=== PATIENT | female | born 1960 | race Caucasian/White ===

== ENCOUNTER → 2020-08-18 16:18 | Outpatient (CLI) | payer OTHER, MEDICAID, SELFPAY | PROVIDERS: Visit Provider Physician Assistant | DX: L02.91 Cutaneous abscess, unspecified (principal) | CPT/HCPCS: 87070; 87075; 87077; 87185; 87205 ==

== ENCOUNTER → 2022-09-23 14:21 | Outpatient (CLI) | payer OTHER, MEDICAID, SELFPAY ==
[2022-09-23 15:27] LABS: Influenza A - CEPHEID Flu A NEGATIVE (NEGATIVE); Influenza B - CEPHEID Flu B NEGATIVE (NEGATIVE); Respiratory Syncytial Virus Negative (Negative)
[2022-09-23 15:29] LABS: COVID-19 CEPHEID 4-PLEX PCR Negative (Negative)
== END ==
PROVIDERS: Visit Provider Physician Assistant
DX: R06.02 Shortness of breath (principal)
CPT/HCPCS: 0241U

== ENCOUNTER → 2022-09-23 14:32 | Outpatient (CLI) | payer OTHER, MEDICAID, SELFPAY ==
--- NOTE | 2022-09-23 14:39 | DI.RAD.S_ITS ---
PROCEDURE: XR CHEST 2V INDICATIONS: cough TECHNIQUE: 2 views of the chest were acquired. COMPARISON: None. FINDINGS: Surgical changes and devices: None. Lungs and pleura: Diffuse interstitial prominence. Streaky bibasilar opacities. No focal consolidation. No pneumothorax or substantial pleural effusion. Mediastinum: Mediastinal contours are normal. Heart size is normal. Bones and chest wall: No suspicious bony abnormalities. Soft tissues appear unremarkable. IMPRESSION: Diffuse interstitial prominence and streaky bibasilar opacities. Findings are nonspecific and may represent an infectious/inflammatory process with viral etiology most likely. Streaky opacities favored to represent atelectasis. No focal consolidation seen. Dictated by: Jose Manuel Hammond M.D. on 09/23/2022 at 15:06 Approved by: Jose Manuel Hammond M.D. on 09/23/2022 at 15:08
== END ==
PROVIDERS: Referring Provider Physician Assistant; Visit Provider Physician Assistant
DX: R05.9 Cough, unspecified (principal); R06.02 Shortness of breath
CPT/HCPCS: 0241U; 71046

== ENCOUNTER → 2022-09-29 10:17 | Outpatient (CLI) | payer OTHER, MEDICAID, SELFPAY ==
[2022-09-29 10:56] LABS: Add Manual Diff / Slide Review NO; Basophils Absolute Auto 100 /uL (0-100); Basophils Percent Auto 0.9 % (0-2); Eosinophils Absolute Auto 200 /uL (0-450); Hematocrit 47.2 % (36-46); Hemoglobin 15.9 g/dL (12.0-16.0); Hemoglobin A1C% w Est Avg Glu 5.5 % (4.0-6.0); Lymphocytes Absolute Auto 2900 /uL (1100-4500); Lymphocytes Percent Auto 30.1 % (25-40); Mean Corpuscular HGB Conc 33.7 % (30-36); Mean Corpuscular Hemoglobin 30.5 PG (26-34); Mean Corpuscular Volume 90.6 fL (80-100); Monocytes Absolute Auto 500 /uL (0-900); Monocytes Percent Auto 5.3 % (3-14); Neutrophils Absolute Auto 5900 /uL (1500-7000); Neutrophils Percent Auto 61.7 % (50-75); Platelet Count 278 X10^3/uL (150-400); Red Blood Cell Count 5.22 X10^6/uL (4.0-5.2); Red Cell Distribution Width 12.9 % (11.6-14.8); White Blood Cell Count 9.6 X10^3/uL (4.5-11.0)
[2022-09-29 11:29] LABS: Alanine Aminotransferase 24 IU/L (<35); Albumin 4.1 g/dL (3.5-5.0); Albumin Globulin Ratio 1.2 (1.0-2.8); Alkaline Phosphatase 95 U/L (38-126); Aspartate Aminotransferase 29 IU/L (14-36); BUN Creatinine Ratio 21.7 (6-22); Bilirubin Total 0.3 mg/dL (0.2-1.3); Blood Urea Nitrogen 13 mg/dL (7-17); Calcium 8.8 mg/dL (8.4-10.2); Carbon Dioxide 26 mmol/L (22-32); Chloride 107 mmol/L (98-107); Cholesterol 211 mg/dL (140-199); Estimated Glomerular Filt Rate > 60 mL/min (>60); Globulin 3.4 g/dL (1.7-4.1); Glucose 105 mg/dL (80-110); HDL Cholesterol 33 mg/dL (40-60); HEMOLYSIS < 15 (0-50); LDL Cholesterol Calculated 132 mg/dL (<100); Potassium 3.9 mmol/L (3.4-5.1); Sodium 140 mmol/L (137-145); Total Protein 7.5 g/dL (6.3-8.2); Triglycerides 232 mg/dL (35-150)
== END ==
PROVIDERS: PCP Family Medicine; Referring Provider Family Medicine; Visit Provider Family Medicine
DX: I10 Essential (primary) hypertension (principal)
CPT/HCPCS: 36415; 80053; 80061; 83036; 85025

== ENCOUNTER → 2022-10-06 12:36 | Outpatient (CLI) | payer OTHER, MEDICAID, SELFPAY ==
--- NOTE | 2022-10-06 12:36 | DI.ECHO.S_ITS ---
[place] [facility]---------+ [facility] +---------+ : : [address] : : : : [id number] : : : : Phone: [phone] Echocardiogram Report + + :Name: BERNARDA COSTELLO Study Date: 10/06/2022 Height: 66 in : :[facility] ReadingLocation: Weight: 220 lb : : Gender: Female BSA: 2.1 m2 : :: 1960 Age: 61 yrs BP: 171/120 mmHg: :Reason For Study: Congestive Heart Failure : :Ordering Physician: JANNY, : :JOANNA Performed By: Michael Acosta : :Referring: JOANNA SOLIMAN : + + Interpretation Summary The left ventricle is normal in size. Left ventricular systolic function appears normal without focal wall motion abnormalities. The ejection fraction is estimated to be 55-60%. Diastolic parameters suggest a relaxation abnormality of the left ventricle, consistent with probable normal filling pressures. The right ventricle is normal in size and function. Pulmonary artery pressures cannot be estimated because of the lack of a measurable TR jet velocity. Both atria are normal in size. There is no significant valvular heart disease. The aortic root is normal size. Procedure: A two-dimensional transthoracic echocardiogram with color flow and Doppler was performed. The study quality was technically adequate. There is no prior echocardiogram noted for this patient. The patient was in normal sinus rhythm during the exam. Left Ventricle: The left ventricle is normal in size. There is mild concentric left ventricular hypertrophy. Left ventricular systolic function appears normal without focal wall motion abnormalities. The ejection fraction is estimated to be 55-60%. Diastolic parameters suggest a relaxation abnormality of the left ventricle, consistent with probable normal filling pressures. Right Ventricle: The right ventricle is normal in size and function. Atria: Both atria are normal in size. The interatrial septum grossly appears intact with no obvious evidence for an atrial septal defect. Mitral Valve: The mitral valve is normal in structure and function. There is no mitral regurgitation noted. Aortic Valve: The aortic valve is normal in structure and function. No aortic regurgitation is present. Tricuspid Valve: The tricuspid valve is normal in structure and function. No tricuspid regurgitation. Pulmonary artery pressures cannot be estimated because of the lack of a measurable TR jet velocity. Pulmonic Valve: The pulmonic valve is normal in structure and function. There is no pulmonic valvular regurgitation. There is no significant valvular heart disease. Great Vessels: The aortic root is normal size. The ascending aorta could not be visualized. The IVC is of normal diameter and collapses greater than 50% with a sniff. This suggests a low right atrial pressure of 3 mm Hg. Pericardium/ Pleura There is no pericardial effusion. There is no pleural effusion. MMode/2D Measurements & Calculations LVIDd: 4.6 cm LVOT diam: 2.1 cm LVIDs: 3.3 cm Ao root diam: 3.3 cm FS: 27.1 % IVSd: 1.3 cm LVPWd: 1.2 cm LV mancilla. diameter/BSA (cm/m^2): 2.2 LV sys. diameter/BSA (cm/m^2): 1.6 LA dimension: 5.2 cm RA long axis: 4.2 cm LA A2 area: 21.0 cm2 RA area: 11.7 cm2 LA A4 area: 15.8 cm2 RA vol: 27.4 ml LA length (vol): 4.4 cm RA : 13.1 ml/m2 LA vol: 63.4 ml LA vol index: 30.4 ml/m2 RVD1 (basal): 2.7 cm TAPSE: 2.8 cm Doppler Measurements & Calculations Ao V2 max: 146.3 cm/sec LVOT Max Iván: 84.5 cm/sec Ao V2 mean: 98.1 cm/sec LV V1 max P.9 mmHg Ao max P.6 mmHg LV V1 VTI: 15.9 cm Ao mean P.4 mmHg MARIANA(I,D): 2.3 cm2 Ao V2 VTI: 23.5 cm MARIANA(V,D): 1.9 cm2 sev ratio: 0.68 MARIANA indexed to BSA (cm^2/m^2): 1.1 MV E max iván: 63.4 cm/sec SV(LVOT): 53.5 ml MV A max iván: 92.0 cm/sec MV E/A: 0.69 Med Peak E' Iván: 4.6 cm/sec E/E' med: 13.8 Lat Peak E' Iván: 6.6 cm/sec E/E' lat: 9.6 E/e' average: 11.7 MV dec time: 0.28 sec Reading Physician:03:54 PM
== END ==
PROVIDERS: PCP Family Medicine; Referring Provider Family Medicine; Visit Provider Family Medicine
DX: I11.0 Hypertensive heart disease with heart failure (principal); I50.9 Heart failure, unspecified
CPT/HCPCS: 93306

== ENCOUNTER 2023-04-20 10:45 | Observation (INO) | payer OTHER, MEDICAID, SELFPAY ==
[2023-04-20] VITALS (24 sets, daily range): BP systolic 109–204; BP diastolic 66–126; PULSE 77–114; RESP 11–36; TEMP 36.6–37.3; O2SAT 93–100; BMI 31.4
--- NOTE | 2023-04-20 10:47 | ED.GENADULT ---
HPI - General Adult General Chief complaint: Altered Mental Status Stated complaint: sent by /ricky Time Seen by Provider: 04/20/23 10:47 History of Present Illness HPI narrative: 62-year-old female with history of hypertension and hyperlipidemia presents with family in the chief complaint of confusion over the course of the day. She had been seen and evaluated a few days ago and found to have low sodium at an outside facility and had her medications changed. She had been taking hydrochlorothiazide and it was thought that this was the culprit. She was switched to amlodipine but has not had it filled. She denies any trauma or injury. She is had no fever or chills. She denies other medication or dietary change. She was in her normal state of health yesterday and then family checked in on her today and she is confused. She denies specific complaints such as blurred vision, trouble with speech, she has no neck pain, no extremity numbness or tingling. Related Data Previous Rx's Medication Instructions Recorded hydroxyzine HCl 25 mg tablet 12.5 - 50 mg PO QID PRN 01/10/23 anxiety/panic #90 tabs pramipexole 0.125 mg tablet 0.125 mg PO BEDTIME RLS #30 tabs 03/13/23 (Mirapex) trazodone 50 mg tablet 50 mg PO BEDTIME PRN insomnia #30 03/21/23 tabs nicotine (polacrilex) 4 mg buccal 4 mg buccal Q6H PRN nicotine 04/04/23 lozenge cravings #108 ea citalopram 20 mg tablet (Celexa) 20 mg PO DAILY #30 tabs 04/18/23 Allergies Allergy/AdvReac Type Severity Reaction Status Date / Time Sulfa (Sulfonamide Allergy Mild Itching, Verified 04/20/23 11:12 Antibiotics) nausea and just felt horrible Review of Systems Review of Systems Narrative: GENERAL: Denies chills, fatigue, malaise, fever, sweats. HEENT: Denies sinus pain, ear pain, sore throat, difficulty swallowing, dizziness. RESPIRATORY: Denies dyspnea, cough, wheezing, hemoptysis, sputum. CARDIOVASCULAR: Denies chest pain, palpitations, orthopnea, edema, GASTROINTESTINAL: Denies nausea, vomiting, abdominal pain, diarrhea, constipation, melena. : Denies dysuria, frequency, incontinence, hematuria, urinary retention. MUSCULOSKELETAL: denies weakness, joint pain, or bony pain SKIN: Denies rash, skin lesions, or other NEUROLOGIC: See HPI PSYCHIATRIC: No concerning psychosocial issues. 12 point review of systems is negative except for those stated above Patient History Medical History Ankle pain (2017) Anxiety (1971) CHF (congestive heart failure) (2015) Chicken pox (1975) Chronic headaches (1979) COPD (chronic obstructive pulmonary disease) Depression (2015) Foot pain (2016) JUN (generalized anxiety disorder) Hayfever History of substance abuse Insomnia Migraine Migraines (1979) Mumps (~1965) Pneumonia (10/2016) RLS (restless legs syndrome) (1973) Ruptured tympanic membrane (~1963) Substance abuse (1987) Tobacco dependence Surgical History Anesthesia History of section (1996) History of discectomy (1990) History of left hip replacement (05/2013) History of right hip replacement (01/2014) History of tonsillectomy (1962) Family History Father Pancreatic cancer Cancer Mother Parkinson's disease RLS (restless legs syndrome) Macular degeneration Ovarian cancer Cancer Hypertension Mental health problem Brother Congestive heart failure Cancer Heart disease Sister Heart disease Sister Mental health problem Anxiety Grandmother Mental health problem Suicide Bipolar disorder Social History household members: family Smoking Status: Former smoker Tobacco: How many years used: 41 quit status: not considering quitting (not today.) second hand exposure: No alcohol intake: former substance use type: former substance user Smoking Status: Current every day smoker (1 pack a day. Gave patient a smoking cessation handout.) Exam Narrative Exam Narrative: GENERAL: [62] year old patient appears stated age. Well-developed patient, in mild distress. GCS 14, mildly confused HEAD: Atraumatic. Normocephalic. EYES: Pupils equal round and reactive. Extraocular motions intact. No scleral icterus. No injection or drainage. ENT: Nose without bleeding, purulent drainage. Throat without erythema, tonsillar hypertrophy or exudate. Airway patent. NECK: Trachea midline. Non tender CARDIOVASCULAR: Regular rate and rhythm without murmurs, gallops, or rubs. RESPIRATORY: Clear to auscultation. Breath sounds equal bilaterally. No wheezes, rales, or rhonchi. GASTROINTESTINAL: Abdomen soft, non-tender, nondistended. EXTREMITIES: No edema or joint tenderness. BACK: Nontender without deformity or crepitance. No flank tenderness. NEURO: AOx3. SKIN: No rash or erythema of visible areas NIH Stroke Scale 1a. LOC: Patient is alert and keenly responsive (0) 1b. LOC Questions: Patient answers both LOC questions accurately (0) 1c. LOC Commands: Patient performs both tasks correctly (0) 2. Best Gaze: Normal (0) 3. Visual: No visual loss (0) 4. Facial palsy: Normal symmetrical movements (0) 5. Motor arm: No drift (0) 6. Motor leg: No drift (0) 7. Limb ataxia: Absent (0) 8. Sensory: Normal (0) 9. Best language: No aphasia; normal (0) 10. Dysarthria: Normal (0) 11. Extinction and inattention: No abnormality (0) NIHSS: 0 Initial Vital Signs Initial Vital Signs: Vital Signs Temperature 98 F 04/20/23 10:50 Pulse Rate 94 H 04/20/23 10:50 Respiratory Rate 18 04/20/23 10:50 Blood Pressure 204/126 H 04/20/23 10:50 Pulse Oximetry 99 04/20/23 10:50 Oxygen Delivery Method Room Air 04/20/23 10:50 Course Orders Ordered: Discontinued Medications Acetaminophen (Acetaminophen 325 Mg Tablet) 650 mg PO Q6H PRN PRN Reason: Fever/Mild Pain (1-3) Amlodipine Besylate (Amlodipine 5 Mg Tablet) 5 mg PO DAILY ASTRID Citalopram Hydrobromide (Citalopram 10 Mg Tablet) 20 mg PO DAILY ASTRID Diazepam (Diazepam 10 Mg/2 Ml Syringe) 5 mg IV NOW ONE Stop: 04/20/23 14:05 Last Admin: 04/20/23 14:12 Dose: 5 mg Documented By: JERROD Diazepam (Diazepam 10 Mg/2 Ml Syringe) 5 mg IV NOW ONE Stop: 04/20/23 14:57 Last Admin: 04/20/23 15:00 Dose: 5 mg Documented By: MARK ANTHONY Sodium Chloride (Normal Saline 0.9%) 1,000 mls @ 1,000 mls/hr IV BOLUS ONE Stop: 04/20/23 11:54 Last Infusion: 04/20/23 13:02 Dose: 0 mls/hr Documented By: Admin: 04/20/23 11:35 Dose: 1,000 mls/hr Documented By: JERROD Thiamine HCl 200 mg/ Sodium (Chloride) 102 mls @ 408 mls/hr IV NOW ONE Stop: 04/20/23 10:56 Last Infusion: 04/20/23 11:57 Dose: 0 mls/hr Documented By: MARK ANTHONY Admin: 04/20/23 11:35 Dose: 408 mls/hr Documented By: JERROD Labetalol HCl (Labetalol 20 Mg/4 Ml Syringe) 20 mg IV NOW ONE; Protocol Stop: 04/20/23 11:21 Last Admin: 04/20/23 11:58 Dose: 20 mg Documented By: JERROD Lidocaine HCl (Lidocaine 2% Inj Sdv 5ml) 5 ml INJ INTRA-OP ONE Stop: 04/20/23 16:59 Last Admin: 04/20/23 16:59 Dose: 5 ml Documented By: JERROD Lorazepam (Lorazepam 2 Mg/Ml Inj) 1 mg IV NOW ONE Stop: 04/20/23 12:57 Last Admin: 04/20/23 13:04 Dose: 1 mg Documented By: JERROD Lorazepam (Lorazepam 2 Mg/Ml Inj) 1 mg IV NOW ONE Stop: 04/20/23 15:39 Last Admin: 04/20/23 16:22 Dose: 1 mg Documented By: JERROD Lorazepam (Lorazepam 2 Mg/Ml Inj) 1 mg IV NOW ONE Stop: 04/20/23 16:01 Last Admin: 04/20/23 16:25 Dose: 1 mg Documented By: JERROD Magnesium Hydroxide (Magnesium Hydroxide 30 Ml Udc) 30 ml PO DAILY PRN PRN Reason: Constipation Nicotine (Nicotine 21 Mg Patch) 21 mg TOP DAILY ASTRID Pramipexole Dihydrochloride (Pramipexole 0.25 Mg Tablet) 0.125 mg PO BEDTIME ASTRID Sodium Chloride (Sodium Chloride 0.9% Flush) 10 ml IV PRN PRN PRN Reason: Flush Sodium Chloride (Sodium Chloride 0.9% Flush) 10 ml IV BID ASTRID Trazodone HCl (Trazodone 50 Mg Tablet) 50 mg PO BEDTIME PRN PRN Reason: insomnia Consultations Consultation #1: Discussed with Dr. Wiley, hospitalist, happy to accept patient, will see patient at bedside Vital Signs Vital signs: Vital Signs - 8 hr 04/20/23 10:50 04/20/23 10:57 04/20/23 10:58 Temperature 98 F Pulse Rate 94 H 99 H 99 H Respiratory Rate 18 22 15 Blood Pressure 204/126 H Pulse Oximetry 99 95 Oxygen Delivery Method Room Air 04/20/23 10:58 04/20/23 11:00 04/20/23 11:30 Temperature Pulse Rate 99 H Respiratory Rate 15 Blood Pressure 204/126 H 175/97 H Pulse Oximetry 100 Oxygen Delivery Method 04/20/23 11:30 04/20/23 11:58 04/20/23 11:37 Temperature Pulse Rate 96 H 92 H 92 H Respiratory Rate 23 23 Blood Pressure 171/109 H Pulse Oximetry 99 100 Oxygen Delivery Method 04/20/23 11:37 04/20/23 11:45 04/20/23 11:45 Temperature Pulse Rate 93 H Respiratory Rate 14 Blood Pressure 153/98 H 171/109 H Pulse Oximetry 99 Oxygen Delivery Method 04/20/23 12:00 04/20/23 12:04 04/20/23 12:04 Temperature Pulse Rate 87 80 Respiratory Rate 25 H 20 Blood Pressure 166/96 H Pulse Oximetry 100 98 Oxygen Delivery Method Medical Decision Making Lab Data 04/20/23 11:05 04/20/23 11:05 Labs: Lab Results 04/20/23 04/20/23 04/20/23 Range/Units 11:05 11:05 11:44 WBC 8.2 (4.5-11.0) X10^3/uL RBC 4.62 (4.0-5.2) X10^6/uL Hgb 13.6 (12.0-16.0) g/dL Hct 39.8 (36-46) % MCV 86.2 (80-100) fL MCH 29.4 (26-34) PG MCHC 34.1 (30-36) % RDW 13.3 (11.6-14.8) % Plt Count 339 (150-400) X10^3/uL Neut % (Auto) 66.0 (50-75) % Lymph % (Auto) 24.2 L (25-40) % Dale % (Auto) 7.3 (3-14) % Eos % (Auto) 1.3 L (2-4) % Baso % (Auto) 1.2 (0-2) % Neut # (Auto) 5400 (2822-4269) /uL Lymph # (Auto) 2000 (9468-2063) /uL Dale # (Auto) 600 (0-900) /uL Eos # (Auto) 100 (0-450) /uL Baso # (Auto) 100 (0-100) /uL Sodium 136 L (137-145) mmol/L Potassium 4.1 (3.4-5.1) mmol/L Chloride 99 (98-107) mmol/L Carbon Dioxide 29 (22-32) mmol/L BUN 13 (7-17) mg/dL Creatinine 0.65 (0.52-1.04) mg/dL Estimated GFR > 60 (>60) mL/min BUN/Creatinine Ratio 20.0 (6-22) Glucose 107 (80-110) mg/dL Calcium 8.8 (8.4-10.2) mg/dL Magnesium 2.2 (1.6-2.3) mg/dL Total Bilirubin 0.4 (0.2-1.3) mg/dL AST 26 (14-36) IU/L ALT 24 (<35) IU/L Alkaline Phosphatase 81 (38-126) U/L Total Creatine Kinase 150 H (30-135) U/L CK-MB (CK-2) TNP CK-MB (CK-2) Rel Index TNP Troponin I < 0.012 (0.01-0.034) ng/mL Total Protein 7.5 (6.3-8.2) g/dL Albumin 4.3 (3.5-5.0) g/dL Globulin 3.2 (1.7-4.1) g/dL Albumin/Globulin Ratio 1.3 (1.0-2.8) Urine Color Urine Appearance Urine pH (4.5-8.0) Ur Specific [place] (1.000-1.035) Urine Protein (Negative) Urine Glucose (UA) (Negative) g/dL Urine Ketones (NEGATIVE) Urine Occult Blood (Negative) Urine Nitrate (Negative) Urine Bilirubin (NEGATIVE) Urine Urobilinogen (0.2) E.U./dL Ur Leukocyte Esterase (NEGATIVE) Urine RBC (0-5/HPF) Urine WBC (0-5/HPF) Ur Squamous Epith Cells (0-5/HPF) Urine Bacteria (None) Ur Culture Indicated? Micro UA Comment Ur Random Sodium 19 L (30-90) mmol/L Urine Creatinine 7.0 mg/dL Salicylates < 1.0 (<20) mg/dL U Opiates 300ng/mL cut (Negative) Ur Oxycodone Screen (Negative) Urine Methadone Screen (Negative) Acetaminophen < 10 (10-30) ug/mL Ur Barbiturates Screen (Negative) U Tricyclic Antidepress (Negative) Ur Phencyclidine Scrn (Negative) Ur Amphetamines Screen (Negative) U Methamphetamines Scrn (Negative) Ur MDMA Scrn (Ecstasy) (Negative) U Benzodiazepines Scrn (Negative) Urine Cocaine Screen (Negative) U Marijuana (THC) Screen (Negative) Ethyl Alcohol < 10 ( - 10) mg/dL 04/20/23 04/20/23 Range/Units 11:44 11:44 WBC (4.5-11.0) X10^3/uL RBC (4.0-5.2) X10^6/uL Hgb (12.0-16.0) g/dL Hct (36-46) % MCV (80-100) fL MCH (26-34) PG MCHC (30-36) % RDW (11.6-14.8) % Plt Count (150-400) X10^3/uL Neut % (Auto) (50-75) % Lymph % (Auto) (25-40) % Dale % (Auto) (3-14) % Eos % (Auto) (2-4) % Baso % (Auto) (0-2) % Neut # (Auto) (3384-5722) /uL Lymph # (Auto) (6725-8289) /uL Dale # (Auto) (0-900) /uL Eos # (Auto) (0-450) /uL Baso # (Auto) (0-100) /uL Sodium (137-145) mmol/L Potassium (3.4-5.1) mmol/L Chloride (98-107) mmol/L Carbon Dioxide (22-32) mmol/L BUN (7-17) mg/dL Creatinine (0.52-1.04) mg/dL Estimated GFR (>60) mL/min BUN/Creatinine Ratio (6-22) Glucose (80-110) mg/dL Calcium (8.4-10.2) mg/dL Magnesium (1.6-2.3) mg/dL Total Bilirubin (0.2-1.3) mg/dL AST (14-36) IU/L ALT (<35) IU/L Alkaline Phosphatase (38-126) U/L Total Creatine Kinase (30-135) U/L CK-MB (CK-2) CK-MB (CK-2) Rel Index Troponin I (0.01-0.034) ng/mL Total Protein (6.3-8.2) g/dL Albumin (3.5-5.0) g/dL Globulin (1.7-4.1) g/dL Albumin/Globulin Ratio (1.0-2.8) Urine Color Yellow Urine Appearance Clear Urine pH 6.5 (4.5-8.0) Ur Specific [place] <=1.005 (1.000-1.035) Urine Protein Negative (Negative) Urine Glucose (UA) Negative (Negative) g/dL Urine Ketones Negative (NEGATIVE) Urine Occult Blood Trace-intact (Negative) Urine Nitrate Negative (Negative) Urine Bilirubin Negative (NEGATIVE) Urine Urobilinogen 0.2 (0.2) E.U./dL Ur Leukocyte Esterase Negative (NEGATIVE) Urine RBC None seen (0-5/HPF) Urine WBC None seen (0-5/HPF) Ur Squamous Epith Cells None seen (0-5/HPF) Urine Bacteria None seen (None) Ur Culture Indicated? Cult not indicated Micro UA Comment Microscopic normal Ur Random Sodium (30-90) mmol/L Urine Creatinine mg/dL Salicylates (<20) mg/dL U Opiates 300ng/mL cut Negative (Negative) Ur Oxycodone Screen Negative (Negative) Urine Methadone Screen Negative (Negative) Acetaminophen (10-30) ug/mL Ur Barbiturates Screen Negative (Negative) U Tricyclic Antidepress Negative (Negative) Ur Phencyclidine Scrn Negative (Negative) Ur Amphetamines Screen Negative (Negative) U Methamphetamines Scrn Negative (Negative) Ur MDMA Scrn (Ecstasy) Negative (Negative) U Benzodiazepines Scrn Negative (Negative) Urine Cocaine Screen Negative (Negative) U Marijuana (THC) Screen Negative (Negative) Ethyl Alcohol ( - 10) mg/dL MDM Narrative Medical decision making narrative: 62-year-old female presents with family and confusion, altered mental status. Recent hospitalization for similar presentation with hyponatremia, however labs are very reassuring today. Imaging demonstrates no evidence of stroke. Labs are unremarkable. No recent trauma or injury. Attempt at lumbar puncture, however procedure was aborted given unsuccessful attempts, this was complicated by significant scar tissue and prior lumbar surgeries. Discharge Plan Departure Patient Disposition: Admitted as Observation Clinical Impression: Altered mental status Admit Date/Time: 04/20/23 17:00 Admit Provider: Elan Wiley
--- NOTE | 2023-04-20 10:55 | DI.RAD.S_ITS ---
PROCEDURE: XR CHEST 1V INDICATIONS: weakness, confusion TECHNIQUE: One view of the chest was acquired. COMPARISON: [facility], CR, XR CHEST 2V, 09/23/2022, 14:38. FINDINGS: Surgical changes and devices: None. Lungs and pleura: Lungs are clear. No pleural effusions or pneumothorax. Mediastinum: Mediastinal contours appear normal. Heart size is normal. Bones and chest wall: No suspicious bony lesions. Overlying soft tissues appear unremarkable. IMPRESSION: No acute cardiopulmonary process. Dictated by: Parrish Barker M.D. on 04/20/2023 at 11:13 Approved by: Parrish Barker M.D. on 04/20/2023 at 11:16
--- NOTE | 2023-04-20 10:56 | DI.CT.S_ITS ---
PROCEDURE: CT HEAD/BRAIN WO CON INDICATIONS: altered mental status TECHNIQUE: Noncontrast 4.5 mm thick angled axial sections acquired from the foramen magnum to the vertex, with coronal and sagittal reformats. For radiation dose reduction, the following was used: automated exposure control, adjustment of mA and/or kV according to patient size. COMPARISON: None. FINDINGS: Image quality: Excellent. CSF spaces: Basal cisterns are patent. No extra-axial fluid collections. Ventricles are normal in size and shape. Brain: No midline shift. No intracranial masses or hemorrhage. Arellano-white matter interface is normal. Skull and face: Calvarium and visualized facial bones are intact, without suspicious lesions. Sinuses: Visualized sinuses and mastoids are clear. IMPRESSION: No acute intracranial abnormality. Approved by: [place] Wisdom M.D. on 04/20/2023 at 11:37
[2023-04-20 11:18] LABS: Add Manual Diff / Slide Review NO; Basophils Absolute Auto 100 /uL (0-100); Basophils Percent Auto 1.2 % (0-2); Eosinophils Absolute Auto 100 /uL (0-450); Eosinophils Percent Auto 1.3 % (2-4); Hematocrit 39.8 % (36-46); Hemoglobin 13.6 g/dL (12.0-16.0); Lymphocytes Absolute Auto 2000 /uL (1100-4500); Lymphocytes Percent Auto 24.2 % (25-40); Mean Corpuscular HGB Conc 34.1 % (30-36); Mean Corpuscular Hemoglobin 29.4 PG (26-34); Mean Corpuscular Volume 86.2 fL (80-100); Monocytes Absolute Auto 600 /uL (0-900); Monocytes Percent Auto 7.3 % (3-14); Neutrophils Absolute Auto 5400 /uL (1500-7000); Platelet Count 339 X10^3/uL (150-400); Red Blood Cell Count 4.62 X10^6/uL (4.0-5.2); Red Cell Distribution Width 13.3 % (11.6-14.8); White Blood Cell Count 8.2 X10^3/uL (4.5-11.0)
[2023-04-20 11:31] LABS: Acetaminophen < 10 ug/mL (10-30); Alanine Aminotransferase 24 IU/L (<35); Albumin 4.3 g/dL (3.5-5.0); Albumin Globulin Ratio 1.3 (1.0-2.8); Alkaline Phosphatase 81 U/L (38-126); Aspartate Aminotransferase 26 IU/L (14-36); Bilirubin Total 0.4 mg/dL (0.2-1.3); Blood Urea Nitrogen 13 mg/dL (7-17); Calcium 8.8 mg/dL (8.4-10.2); Carbon Dioxide 29 mmol/L (22-32); Chloride 99 mmol/L (98-107); Creatine Kinase 150 U/L (30-135); Estimated Glomerular Filt Rate > 60 mL/min (>60); Ethanol (ETOH) < 10 mg/dL; Globulin 3.2 g/dL (1.7-4.1); Glucose 107 mg/dL (80-110); HEMOLYSIS < 15 (0-50); Magnesium 2.2 mg/dL (1.6-2.3); Potassium 4.1 mmol/L (3.4-5.1); Salicylate < 1.0 mg/dL (<20); Sodium 136 mmol/L (137-145); Total Protein 7.5 g/dL (6.3-8.2)
[2023-04-20] MEDS: THIAMINE 200 MG in SODIUM CHLORIDE 0.9% 100 ML 408 MG IV (11:35)
[2023-04-20] MEDS: SODIUM CHLORIDE 0.9% 1,000 ML 1000 ML IV (11:35)
[2023-04-20 11:41] LABS: Troponin I < 0.012 ng/mL (0.01-0.034)
[2023-04-20 11:54] LABS: Appearance Urine UA CLEAR; Bilirubin Urine UA NEGATIVE (NEGATIVE); Color Urine UA YELLOW; Glucose Urine UA NEGATIVE (Negative); Ketones Urine UA NEGATIVE (NEGATIVE); Leukocyte Esterase Urine UA NEGATIVE (NEGATIVE); Nitrite Urine UA NEGATIVE (Negative); Occult Blood Urine UA TRACE-INTACT (Negative); Protein Urine UA NEGATIVE (Negative); Specific Gravity Urine UA <=1.005 (1.000-1.035); Urobilinogen Urine UA 0.2 E.U./dL (0.2)
[2023-04-20 11:56] LABS: UR Morphine/Opiate cutoff 300 Negative (Negative); Ur Creatinine Normal (Normal); Ur Specific Gravity Normal (Normal); Urine Amphetamines Negative (Negative); Urine Barbiturates Negative (Negative); Urine Benzodiazepines Negative (Negative); Urine Cocaine Negative (Negative); Urine MDMA Negative (Negative); Urine Methadone Negative (Negative); Urine Methamphetamines Negative (Negative); Urine Oxycodone Negative (Negative); Urine Phencyclidine Negative (Negative); Urine Tetrahydrocannabinol Negative (Negative); Urine Tricyclic Antidepressant Negative (Negative); Urine pH Normal (Normal)
[2023-04-20 11:57] LABS: pH Urine UA 6.5 (4.5-8.0)
[2023-04-20] MEDS: LABETALOL 20 MG/4 ML SYRINGE IV (11:58)
[2023-04-20 12:01] LABS: Bacteria Urine None Seen; Culture Indicated Urine Cult Not Indicated; RBC Urine None Seen (0-5/HPF); Squamous Epithelial Cell Urine None Seen (0-5/HPF); Urine Comments Microscopic Normal; WBC Urine None Seen (0-5/HPF)
[2023-04-20] MEDS: LORazepam 2 MG/ML INJ 1 MG IV ×3 (13:04→16:25)
--- NOTE | 2023-04-20 13:10 | PC.NURSE ---
LP consent signed by patient, Dr. Guerra has explained procedure to patient as well as son.
--- NOTE | 2023-04-20 13:13 | DI.MRI.S_ITS ---
PROCEDURE: MR HEAD/BRAIN WO CON INDICATIONS: stroke TECHNIQUE: Non-contrast axial T1 spin echo, axial T2 fast spin echo, axial FLAIR, coronal T2 fast spin echo, axial gradient echo, axial diffusion and ADC through the brain. The patient terminated the study before the standard protocol could be completed. No sagittal FLAIR images were acquired. COMPARISON: [facility], CT, CT ANGIO HEAD AND NECK, 04/20/2023, 13:30. [facility], CT, CT HEAD/BRAIN WO CON, 04/20/2023, 11:21. FINDINGS: Image quality: Excellent. CSF spaces: Ventricles appear symmetric in size and shape. Basal cisterns are patent. No extra-axial fluid collections. Brain: No intracranial bleeds or mass effects. There is cerebral volume loss for age. There are periventricular and deep white matter chronic small vessel ischemic changes. Brainstem appears normal. Diffusion-weighted images show no acute ischemic insults. No chronic ischemic insults. Normal intravascular flow voids are present. Skull and face: Calvarial bone marrow is normal in signal. Orbits are normal. Sinuses: Sinuses and mastoids are clear. IMPRESSION: No findings of acute or subacute infarction can be seen. Dictated by: Brant Hernandez M.D. on 04/20/2023 at 14:41 Approved by: Brant Hernandez M.D. on 04/20/2023 at 14:42
--- NOTE | 2023-04-20 13:13 | DI.CT.S_ITS ---
PROCEDURE: CT ANGIO HEAD AND NECK INDICATIONS: stroke work up, outside window TECHNIQUE: Noncontrast images were performed earlier in the day and not repeated. After the administration of intravenous contrast, 1 mm thick sections acquired from the aortic arch through the [place]. Post-contrast 4.5 mm thick sections then re-acquired from the foramen magnum to the vertex. 3-dimensional obdqdai-vtlxpsjiw-pkburmcjuk (MIP) and/or volume rendering reformats were acquired of the central intracranial vasculature and neck separately. For radiation dose reduction, the following was used: automated exposure control, adjustment of mA and/or kV according to patient size. COMPARISON: [facility], CT, CT HEAD/BRAIN WO CON, 04/20/2023, 11:21. FINDINGS: Image quality: Excellent. BRAIN: CSF spaces: Ventricles are normal in size and shape. Basal cisterns are patent. No extra-axial fluid collections. Brain: No midline shift. No intracranial bleeds or masses. Arellano-white matter interface appears intact. Skull and face: Calvarium and facial bones appear intact, without suspicious lesions. Orbits appear normal. Sinuses: Sinuses and mastoids are clear. HEAD CT ANGIOGRAPHY: Anterior circulation: Intracranial internal carotid arteries are normal in size and flow. The flow within the paired anterior cerebral arteries is normal and symmetric. The flow within the middle cerebral arteries is normal and symmetric. The anterior communicating artery is seen. No aneurysms are seen. Posterior circulation: Visualized portions of the vertebral arteries demonstrate normal caliber, and join to form a normal appearing basilar artery. Flow within the posterior cerebral arteries is normal and symmetric. No aneurysms are seen. NECK CT ANGIOGRAPHY: Carotid system: The great vessels demonstrate a conventional anatomy as they arise from the aortic arch. The origins of the common carotid arteries appear patent. The common carotid arteries demonstrate normal caliber and courses. The bifurcation regions are both widely patent. The internal carotid arteries demonstrate normal calibers. There is tortuosity seen involving the distal right internal carotid artery. Posterior circulation: The origins of the vertebral arteries both appear widely patent. The more superior extracranial portions of both vertebral arteries also demonstrate normal courses and calibers. They join to form a normal appearing basilar artery. Soft tissues: Visualized neck soft tissues demonstrate no suspicious abnormalities. Bones: No suspicious bony lesions. Visualized cervical spine appears normally aligned. Moderate cervical spine degenerative change can be seen. IMPRESSION: No acute intracranial process is seen. If there is strong clinical suspicion for an acute stroke, please consider a brain MRI for further evaluation, as it is more sensitive (assuming that there is no contraindication to MRI). No significant intracranial arterial abnormality is seen. Within the arteries of the neck, no hemodynamically significant stenosis can be seen. Any quantitative measurements of stenosis were performed using NASCET criteria. Dictated by: Brant Hernandez M.D. on 04/20/2023 at 13:03 Approved by: Brant Hernandez M.D. on 04/20/2023 at 13:05
[2023-04-20] MEDS: diazePAM 10 MG/2 ML SYRINGE 5 MG IV ×2 (14:12→15:00)
[2023-04-20 16:12] LABS: Sodium Urine Random 19 mmol/L (30-90)
[2023-04-20] MEDS: LIDOCAINE 2% INJ SDV 5ML 5 ML INJ (16:59)
--- NOTE | 2023-04-20 17:06 | PC.NURSE ---
Addendum entered by Donna Daniel R.N. 04/20/23 17:19: 1245: Dr. Guerra explained the LP procedure to the patient but she stated she did not want to hear the risks of the procedure because of her anxiety and confusion level. She states I'm having difficulty distinguishing reality and it's really scary. She agreed to allow Dr. Guerra to explain risks to her son and have her son sign the consent form with Dr. Guerra and I as witnesses. This was all completed. Upon speaking with Dr. Wiley, Dr. Guerra was advised to perform a CTA and an MRI first prior to lumbar puncture. Patient given 1mg of ativan in anticipation of MRI due to anxiety level. 1400: Patient request diazepam for sedation for MRI. She states ativan never works, I need valium. She reports a high tolerance to benzodiazepines due history of alcoholism. 1430: Per RN Best, patient requested and received another dose of 5mg of more valium due to anxiety level. Patient went to MRI. 1500: Patient returned form MRI and states she no longer feels confused. She became upset with her son and Dr. Guerra. She states she feels like everything was out of my control and like the men were making decisions for me. We explained to her that the decisions to do radiology were because of her confusion from earlier. 1630: Dr. Guerra at bedside repeating explanation of LP with risks and benefits now that patient is cognitively aware, A&Ox3, and able to consent for herself. She signed consent with Dr. Guerra and I as witness. She agrees to LP with the guarantee that she will receive enough medication for her anxiety. Ativan given to her in 2 doses of 1mg per instruction from Dr. Guerra. patient agreed to allow us to proceed. LP perofrmed by Dr. Guerra. Was unsuccessful. Patient reported pain during procedure, has scar tissue from prior surgery. It was decided that she would benefit from LP done in IR. Patient lying in bed. Son at bedside. She is comfortable, alert, and oriented. Original Note: 1245: Dr. Guerra explained the procedure to the patient but she stated she did not want to hear the risks of the procedure because of her anxiety and confusion level. She states I'm having difficulty distinguishing reality and it's really scary.She agreed to allow Dr. Guerra to explain risks to her son and have her son sign the consent form with Dr. Guerra and I as witnesses. This was all completed. Upon speaking with Dr. Wiley, Dr. Guerra was advised to perform a CTA and an MRI first prior to lumbar puncture. Patient given 1mg of ativan in anticipation of MRI due to anxiety level. 1400: Patient request diazepam for sedation for MRI. She states ativan never works, I need valium. She reports a high tolerance to benzodiazepines due history of alcoholism. 1430: Per RN Best, patient requested and received another dose of 5mg of more valium due to anxiety level. Patient went to MRI. 1500: Patient returned form MRI and states she no longer feels confused. She became upset with her son and Dr. Guerra. She states she feels like everything was out of my control and like the men were making decisions for me. We explained to her that the decisions to do radiology were because of her confusion from earlier. 1630: Dr. Guerra at bedside repeating explanation of LP with risks and benefits now that patient is cognitively aware, A&Ox3, and able to consent for herself. She signed consent with Dr. Guerra and I as witness. She agrees to LP with the guarantee that she will receive enough medication for her anxiety. Ativan given to her in 2 doses of 1mg per instruction from Dr. Guerra. patient agreed to allow us to proceed. LP perofrmed by Dr. Guerra. Was unsuccessful. Patient reported pain during procedure, has scar tissue from prior surgery. It was decided that she would benefit from LP done in IR.
--- NOTE | 2023-04-20 18:07 | P.HP_ITS ---
History of Present Illness History of Present Illness Date Patient Seen: 04/20/23 Time Patient Seen: 17:30 Chief complaint: sent by /ricky Narrative: Patient is 62 yo female with history of long-standing depression, anxiety disorder, panic attacks, previous alcohol dependency, nicotine dependence, migraine, hypertension, hyperlipidemia, CHF, COPD presents to ED due to recurrent acute confusion. She has admitted at [facility] April 17- due to acute encephalopathy thought possibly secondary to hyponatremia, recent increase in Celexa dose, nicotine cessation. Physician also noted she was eating only one meal a day. She was taken off lisinopril-hct and started on amlodipine which hasn't yet filled Rx. Her son checked in on her this morning and noted she appeared quite confused, hadn't dressed herself, and not responding normally. She kept saying she doesn't know what's reality and what she's imagining. Per son, she didn't seem to be hallucinating. She told son she was scared of him and wouldn't let him in the house. Son states she has been extremely anxious in recent months to past year, having panic attacks, and not leaving the house. Son endorses recent short-term memory loss maybe started 2 weeks ago with repeating herself. Pt this week had shopping spree and bought bunch of things she didn't need. Dr Peres, her PCP, had increased citalopram dose from 20 to 40 mg back in February for anxiety attacks. Pt had been on citalopram for 20 years then quit a couple of years ago but started back on it in December of this year. pt has hx of alcohol dependency with relapses but most recently sober x 5 years. ED work-up was unremarkable including labs, UA, stroke w/u with head CT, head/neck CTA, brain MRI. Initial BP 204/126 likely anxiety related and did normalize/improve substantially after labetalol and pre-MRI diazepam. LP atempt in Ed was unsuccessful. Pt w/o complaints of fever, headache, N/V. family history sig for schizophrenia, bipolar disorder, suicide on maternal side. [facility] Medical History Ankle pain (2017) Anxiety (1971) CHF (congestive heart failure) (2015) Chicken pox (1975) Chronic headaches (1979) COPD (chronic obstructive pulmonary disease) Depression (2014) Foot pain (2016) JUN (generalized anxiety disorder) Hayfever History of substance abuse Insomnia Migraine Migraines (1979) Mumps (~1965) Pneumonia (10/2016) RLS (restless legs syndrome) (1973) Ruptured tympanic membrane (~1963) Substance abuse (1987) Tobacco dependence Surgical History Anesthesia History of section (1996) History of discectomy (1990) History of left hip replacement (05/2013) History of right hip replacement (01/2014) History of tonsillectomy (1962) Family History Father Pancreatic cancer Cancer Mother Parkinson's disease RLS (restless legs syndrome) Macular degeneration Ovarian cancer Cancer Hypertension Mental health problem Brother Congestive heart failure Cancer Heart disease Sister Heart disease Sister Mental health problem Anxiety Grandmother Mental health problem Suicide Bipolar disorder Social History household members: family Smoking Status: Former smoker Tobacco: How many years used: 41 quit status: not considering quitting (not today.) second hand exposure: No alcohol intake: former substance use type: former substance user Meds Home Medications and Allergies Home Medications Medication Instructions Recorded Confirmed Type hydroxyzine HCl 25 mg tablet 12.5 - 50 mg PO QID PRN 01/10/23 04/20/23 Rx anxiety/panic #90 tabs pramipexole 0.125 mg tablet 0.125 mg PO BEDTIME RLS #30 tabs 03/13/23 04/20/23 Rx (Mirapex) trazodone 50 mg tablet 50 mg PO BEDTIME PRN insomnia #30 03/21/23 04/20/23 Rx tabs nicotine (polacrilex) 4 mg buccal 4 mg buccal Q6H PRN nicotine 04/04/23 04/20/23 Rx lozenge cravings #108 ea citalopram 20 mg tablet (Celexa) 20 mg PO DAILY #30 tabs 04/18/23 04/20/23 Rx Allergies Allergy/AdvReac Type Severity Reaction Status Date / Time Sulfa (Sulfonamide Allergy Mild Itching, Verified 04/20/23 11:12 Antibiotics) nausea and just felt horrible Exam Vital Signs (past 8 hours): - 04/20/23 10:50 04/20/23 10:57 04/20/23 10:58 Temperature 98 F Pulse Rate 94 H 99 H 99 H Respiratory Rate 18 22 15 Blood Pressure 204/126 H Pulse Oximetry 99 95 Oxygen Delivery Method Room Air 04/20/23 10:58 04/20/23 11:00 04/20/23 11:30 Temperature Pulse Rate 99 H Respiratory Rate 15 Blood Pressure 204/126 H 175/97 H Pulse Oximetry 100 Oxygen Delivery Method 04/20/23 11:30 04/20/23 11:58 04/20/23 11:37 Temperature Pulse Rate 96 H 92 H 92 H Respiratory Rate 23 23 Blood Pressure 171/109 H Pulse Oximetry 99 100 Oxygen Delivery Method 04/20/23 11:37 04/20/23 11:45 04/20/23 11:45 Temperature Pulse Rate 93 H Respiratory Rate 14 Blood Pressure 153/98 H 171/109 H Pulse Oximetry 99 Oxygen Delivery Method 04/20/23 12:00 04/20/23 12:04 04/20/23 12:04 Temperature Pulse Rate 87 80 Respiratory Rate 25 H 20 Blood Pressure 166/96 H Pulse Oximetry 100 98 Oxygen Delivery Method 04/20/23 14:02 04/20/23 12:31 04/20/23 13:00 Temperature Pulse Rate 79 88 90 Respiratory Rate 15 20 Blood Pressure 172/92 H Pulse Oximetry 97 100 Oxygen Delivery Method 04/20/23 13:07 04/20/23 13:07 04/20/23 13:35 Temperature Pulse Rate 83 82 Respiratory Rate 19 36 H Blood Pressure 172/92 H Pulse Oximetry 94 Oxygen Delivery Method 04/20/23 14:00 04/20/23 14:12 04/20/23 14:12 Temperature Pulse Rate 87 83 Respiratory Rate 27 H 11 L Blood Pressure 175/100 H Pulse Oximetry 98 99 Oxygen Delivery Method 04/20/23 14:30 04/20/23 14:30 04/20/23 16:16 Temperature Pulse Rate 81 92 H Respiratory Rate 22 17 Blood Pressure 169/82 H Pulse Oximetry 100 98 Oxygen Delivery Method 04/20/23 16:16 04/20/23 16:30 04/20/23 17:00 Temperature Pulse Rate 91 H Respiratory Rate 20 Blood Pressure 181/97 H 117/76 Pulse Oximetry 98 Oxygen Delivery Method 04/20/23 17:00 04/20/23 17:30 04/20/23 17:30 Temperature Pulse Rate 86 77 Respiratory Rate 23 15 Blood Pressure 109/66 Pulse Oximetry 94 93 Oxygen Delivery Method Oxygen Delivery Method Room Air Narrative Exam Narrative: General: pt somnolent after lorazepam HEENT: NC/AT, Pupils equal and reactive, no facial droop Neck: no swollen LNs Lungs: clear CV: regular rhythm, no murmur Abd: soft, no HSM Ext: no edema Neuro: currently somnolent, unable to assess mentation Objective Labs 04/20/23 11:05 04/20/23 11:05 Labs: Laboratory Results - last 24 hr 04/20/23 04/20/23 04/20/23 11:05 11:05 11:44 WBC 8.2 RBC 4.62 Hgb 13.6 Hct 39.8 MCV 86.2 MCH 29.4 MCHC 34.1 RDW 13.3 Plt Count 339 Neut % (Auto) 66.0 Lymph % (Auto) 24.2 L [place] % (Auto) 7.3 Eos % (Auto) 1.3 L Baso % (Auto) 1.2 Neut # (Auto) 5400 Lymph # (Auto) 2000 [place] # (Auto) 600 Eos # (Auto) 100 Baso # (Auto) 100 Sodium 136 L Potassium 4.1 Chloride 99 Carbon Dioxide 29 BUN 13 Creatinine 0.65 Estimated GFR > 60 BUN/Creatinine Ratio 20.0 Glucose 107 Calcium 8.8 Magnesium 2.2 Total Bilirubin 0.4 AST 26 ALT 24 Alkaline Phosphatase 81 Total Creatine Kinase 150 H CK-MB (CK-2) TNP CK-MB (CK-2) Rel Index TNP Troponin I < 0.012 Total Protein 7.5 Albumin 4.3 Globulin 3.2 Albumin/Globulin Ratio 1.3 Urine Color Urine Appearance Urine pH Ur Specific [place] Urine Protein Urine Glucose (UA) Urine Ketones Urine Occult Blood Urine Nitrate Urine Bilirubin Urine Urobilinogen Ur Leukocyte Esterase Urine RBC Urine WBC Ur Squamous Epith Cells Urine Bacteria Ur Culture Indicated? Micro UA Comment Ur Random Sodium 19 L Urine Creatinine 7.0 Salicylates < 1.0 U Opiates 300ng/mL cut Ur Oxycodone Screen Urine Methadone Screen Acetaminophen < 10 Ur Barbiturates Screen U Tricyclic Antidepress Ur Phencyclidine Scrn Ur Amphetamines Screen U Methamphetamines Scrn Ur MDMA Scrn (Ecstasy) U Benzodiazepines Scrn Urine Cocaine Screen U Marijuana (THC) Screen Ethyl Alcohol < 10 04/20/23 04/20/23 11:44 11:44 WBC RBC Hgb Hct MCV MCH MCHC RDW Plt Count Neut % (Auto) Lymph % (Auto) [place] % (Auto) Eos % (Auto) Baso % (Auto) Neut # (Auto) Lymph # (Auto) [place] # (Auto) Eos # (Auto) Baso # (Auto) Sodium Potassium Chloride Carbon Dioxide BUN Creatinine Estimated GFR BUN/Creatinine Ratio Glucose Calcium Magnesium Total Bilirubin AST ALT Alkaline Phosphatase Total Creatine Kinase CK-MB (CK-2) CK-MB (CK-2) Rel Index Troponin I Total Protein Albumin Globulin Albumin/Globulin Ratio Urine Color Yellow Urine Appearance Clear Urine pH 6.5 Ur Specific [place] <=1.005 Urine Protein Negative Urine Glucose (UA) Negative Urine Ketones Negative Urine Occult Blood Trace-intact Urine Nitrate Negative Urine Bilirubin Negative Urine Urobilinogen 0.2 Ur Leukocyte Esterase Negative Urine RBC None seen Urine WBC None seen Ur Squamous Epith Cells None seen Urine Bacteria None seen Ur Culture Indicated? Cult not indicated Micro UA Comment Microscopic normal Ur Random Sodium Urine Creatinine Salicylates U Opiates 300ng/mL cut Negative Ur Oxycodone Screen Negative Urine Methadone Screen Negative Acetaminophen Ur Barbiturates Screen Negative U Tricyclic Antidepress Negative Ur Phencyclidine Scrn Negative Ur Amphetamines Screen Negative U Methamphetamines Scrn Negative Ur MDMA Scrn (Ecstasy) Negative U Benzodiazepines Scrn Negative Urine Cocaine Screen Negative U Marijuana (THC) Screen Negative Ethyl Alcohol Assessment & Plan Assessment & Plan narrative: 1. Acute psychosis vs encephalopathy -pt presenting with recurrent confusional state, had expressed to son difficulty with ascertaining reality, recent months with severe anxiety and panic attacks, afraid to leave house, possibly exacerbated with increase in citalopram dose last February -recent admission for confusion associated with hyponatremia and taken off lisinopril-HCTZ and citalopram decreased to 20 mg -recent short-term memory deficits noted by son -ddx includes psychosis associated with severe depression, severe anxiety, possible undiagnosed dementia disorder -no evidence of infectious process such as UTI, no meningismus signs, CASTILLO /fever to suggest encephalitis -admit to Obs -cont citalopram 20 mg daily, trazodone 50 mg HS prn -consider transfer to inpatient geropsych if possible vs outpatient psych eval (pt has been waiting to get in to [facility]) -consider start low dose Seroquel -check B12, TSH -s.w consult in AM -pt lives by herself, son Haja (goes by [place]) is closest family though does not have official POA 2. Hypertensive urgency in ED -likely anxiety related, also has been off her BP pill -improved after labetalol and benzo -monitor BP -labetalol or benzo prn -start amlodipine 5 mg daily 3. Nicotine dependence -ordered nicotine patch 21 mg 4. Restless legs syndrome -cont pramipexole 0.125 mg HS DVT prevention: low risk Quality VTE Deep Vein Thrombosis/Pulmonary Embolism Present on Admission: No
--- NOTE | 2023-04-20 18:30 | PC.NURSE ---
Day shift: Patient admitted and came up to acute care at 1800. VS WNL. Lungs clear. Room air. Active bowel sounds. Patient A&Ox4. She is crying and saying I don't want to be here. They can't figure out what's wrong. Pt is cooperative and able to follow verbal directions. Patient states recent history of anxiety and depression earlier this year, but she reports it has improved. Son at bedside. PIV patent. General diet - patient tolerating food well with no nausea. OOB ad tc independently in the room. Skin in tact - pt has pinpoint-sized red rash on both upper arms. Patient states that the rash is from the blood pressure cuffs at the previous hospital, where she was on Sunday. Will continue to monitor.
--- NOTE | 2023-04-20 23:40 | PC.NURSE ---
Called to room around 2019 and patient stated she was leaving hospital and wanted IV removed. She informed this RN that Dr. Wiley had been in to see her and told her she could leave. JAMARCUS Abraham, contacted and stated Dr. Wiley and indicated patient may go AMA. AMA paperwork given to patient and form reviewed with patient; patient and daughter signed AMA form. IV discontinued. Patient left hospital at 2032.
== END 2023-04-20 20:33 | disposition home or self-care (01) ==
LOC: ED 10:57 → AC 17:01
PROVIDERS: Admitting Provider Internal Medicine; Emergency Provider Emergency Medicine; PCP Family Medicine; Referring Provider Emergency Medicine; Visit Provider Internal Medicine
DX: R41.0 Disorientation, unspecified (principal); Z53.29 Procedure and treatment not carried out because of patient's decision for other reasons; R29.700 NIHSS score 0; I16.0 Hypertensive urgency; F17.210 Nicotine dependence, cigarettes, uncomplicated; F41.9 Anxiety disorder, unspecified; F32.A Depression, unspecified; G25.81 Restless legs syndrome
CPT/HCPCS: 36415; 62270; 70450; 70496; 70498; 70551; 71045; 80053; 80305; 80320; 80329; 81001; 82550; 82570; 83735; 84300; 84484; 85025; 96361; 96374; 96375; 96376; 99285; G0378; G0480; J2060; J3360; Q9967

== ENCOUNTER → 2023-06-27 14:54 | Outpatient (CLI) | payer OTHER, MEDICAID, SELFPAY ==
[2023-04-20 17:55] VITALS: BMI 31.4
== END ==
PROVIDERS: PCP Family Medicine; Referring Provider Family Medicine; Visit Provider Family Medicine
DX: J44.9 Chronic obstructive pulmonary disease, unspecified (principal); F17.210 Nicotine dependence, cigarettes, uncomplicated
CPT/HCPCS: 94060; 94726; 94729

== ENCOUNTER → 2023-07-19 09:56 | Outpatient (CLI) | payer OTHER, MEDICAID, SELFPAY ==
[2023-04-20 17:55] VITALS: BMI 31.4
--- NOTE | 2023-07-19 09:57 | DI.RAD.S_ITS ---
PROCEDURE: XR HIP W PEL IF DONE LT 2V INDICATIONS: pain. fell 8 days ago. previous surgery TECHNIQUE: AP pelvis with lateral view(s) of the left hip(s). COMPARISON: None. FINDINGS: Bones: Bilateral total hip arthroplasty. No acute fracture or dislocation identified. Soft tissues: The visualized bowel gas pattern is normal. No suspicious soft tissue calcifications. IMPRESSION: No acute fracture identified. If symptoms persist, follow-up radiographs and/or CT may be helpful for further evaluation. Dictated by: Montana Martin M.D. on 07/19/2023 at 17:56 Approved by: Montana Martin M.D. on 07/19/2023 at 17:57
== END ==
PROVIDERS: PCP Family Medicine; Referring Provider Family Medicine; Visit Provider Family Medicine
DX: S70.02XA Contusion of left hip, initial encounter (principal); W19.XXXA Unspecified fall, initial encounter; Z96.643 Presence of artificial hip joint, bilateral
CPT/HCPCS: 73502

== ENCOUNTER → 2024-05-01 12:38 | Outpatient (CLI) | payer OTHER, MEDICAID, SELFPAY ==
[2023-10-08 16:45] VITALS: BMI 31.4
--- NOTE | 2024-05-01 12:39 | DI.CT.S_ITS ---
PROCEDURE: CT HEAD/BRAIN WO CON INDICATIONS: Head injury no LOC; balance issues, unequal pupils; fatigue TECHNIQUE: Noncontrast 4.5 mm thick angled axial sections acquired from the foramen magnum to the vertex, with coronal and sagittal reformats. For radiation dose reduction, the following was used: automated exposure control, adjustment of mA and/or kV according to patient size. COMPARISON: [facility], MR, MR HEAD/BRAIN WO CON, 04/20/2023, 14:42. [facility], CT, CT HEAD/BRAIN WO CON, 04/20/2023, 11:21. FINDINGS: Image quality: Diagnostic. CSF spaces: Basal cisterns are patent. No extra-axial fluid collections. The ventricles are symmetric in size and shape. Brain: No intracranial bleeds or masses. There is cerebral volume loss for age, with resultant ventricular and sulcal prominence. There are periventricular and deep white matter chronic small vessel ischemic changes. There is intracranial internal carotid artery atherosclerosis. Skull and face: Soft tissue swelling can be seen within the left supraorbital region. No associated fracture can be seen within this area. Calvarium and visualized facial bones appear intact, without suspicious lesions. Sinuses: Visualized sinuses and mastoids are clear. IMPRESSION: Left supraorbital scalp soft tissue swelling can be seen, without an associated fracture. No acute intracranial hemorrhage is seen. No acute intracranial process is seen. Dictated by: Brant Hernandez M.D. on 05/01/2024 at 12:13 Approved by: Brant Hernandez M.D. on 05/01/2024 at 12:15
== END ==
PROVIDERS: PCP Family Medicine; Referring Provider Physician Assistant; Visit Provider Physician Assistant
DX: S09.90XA Unspecified injury of head, initial encounter (principal); I65.29 Occlusion and stenosis of unspecified carotid artery; R26.89 Other abnormalities of gait and mobility; H57.02 Anisocoria; H02.409 Unspecified ptosis of unspecified eyelid; R53.83 Other fatigue; M79.89 Other specified soft tissue disorders; X58.XXXA Exposure to other specified factors, initial encounter
CPT/HCPCS: 70450

== ENCOUNTER → 2024-09-08 16:33 | Outpatient (CLI) | payer OTHER, MEDICAID, SELFPAY ==
[2023-10-08 16:45] VITALS: BMI 31.4
[2024-09-08 17:38] LABS: COVID-19 CEPHEID 4-PLEX PCR Negative (Negative); Influenza A - CEPHEID Flu A NEGATIVE (NEGATIVE); Influenza B - CEPHEID Flu B NEGATIVE (NEGATIVE); Respiratory Syncytial Virus Negative (Negative)
== END ==
PROVIDERS: PCP Family Medicine; Visit Provider Nurse Practitioner Family
DX: R05.1 Acute cough (principal); J32.9 Chronic sinusitis, unspecified
CPT/HCPCS: 87635; 87400 ×2; 87420; 0241U

== ENCOUNTER → 2024-10-21 09:46 | Outpatient (CLI) | payer OTHER, MEDICAID, SELFPAY ==
[2023-10-08 16:45] VITALS: BMI 31.4
[2024-10-21 10:11] LABS: Hematocrit 41.4 % (36-46); Mean Corpuscular HGB Conc 33.9 % (30-36); Mean Corpuscular Hemoglobin 31.2 PG (26-34); Platelet Count 299 X10^3/uL (150-400); Red Cell Distribution Width 13.8 % (11.6-14.8); White Blood Cell Count 8.8 X10^3/uL (4.5-11.0)
[2024-10-21 10:20] LABS: Hemoglobin A1C% w Est Avg Glu 5.4 % (4.0-6.0)
[2024-10-21 10:37] LABS: Alanine Aminotransferase 17 IU/L (<35); Albumin 3.9 g/dL (3.5-5.0); Albumin Globulin Ratio 1.6 (1.0-2.8); Alkaline Phosphatase 79 U/L (38-126); Aspartate Aminotransferase 25 IU/L (14-36); BUN Creatinine Ratio 12.7 (6-22); Bilirubin Total 0.4 mg/dL (0.2-1.3); Blood Urea Nitrogen 8 mg/dL (7-17); Calcium 8.4 mg/dL (8.4-10.2); Carbon Dioxide 24 mmol/L (22-32); Chloride 104 mmol/L (98-107); Cholesterol 119 mg/dL (140-199); Estimated Glomerular Filt Rate > 60 mL/min (>60); Globulin 2.5 g/dL (1.7-4.1); Glucose 90 mg/dL (80-110); HDL Cholesterol 40 mg/dL (40-60); HEMOLYSIS < 15 (0-50); LDL Cholesterol Calculated 47 mg/dL (<100); Potassium 3.8 mmol/L (3.4-5.1); Sodium 133 mmol/L (137-145); Total Protein 6.4 g/dL (6.3-8.2); Triglycerides 160 mg/dL (35-150)
== END ==
LOC: LAB 09:46
PROVIDERS: PCP Family Medicine; Referring Provider Family Medicine; Visit Provider Family Medicine
DX: J44.9 Chronic obstructive pulmonary disease, unspecified (principal); I50.9 Heart failure, unspecified; E78.5 Hyperlipidemia, unspecified; I11.0 Hypertensive heart disease with heart failure
CPT/HCPCS: 36415; 80053; 80061; 83036; 85027

== ENCOUNTER → 2024-12-16 17:16 | Outpatient (CLI) | payer OTHER, SELFPAY ==
[2023-10-08 16:45] VITALS: BMI 31.4
--- NOTE | 2024-12-16 17:17 | DI.RAD.S_ITS ---
PROCEDURE: XR HIP W PEL IF DONE RT 2V INDICATIONS: pain TECHNIQUE: AP pelvis with lateral view(s) of the right hip(s). COMPARISON: [facility], , XR HIP W PEL IF DONE LT 2V, 07/19/2023, 10:13. FINDINGS: Bones: No fractures or dislocations. Pelvic ring appears intact. No suspicious bony lesions. Bilateral hip arthroplasties. Hardware is intact without hardware fracture or periprosthetic lucency to suggest loosening. Alignment is stable. Degenerative changes are present within the lower lumbar spine. Soft tissues: The visualized bowel gas pattern is normal. No suspicious soft tissue calcifications. IMPRESSION: Stable appearance of hip arthroplasties. Dictated by: Angélica Larsen M.D. on 12/16/2024 at 21:36 Approved by: Angélica Larsen M.D. on 12/16/2024 at 21:36
--- NOTE | 2024-12-16 17:17 | DI.RAD.S_ITS ---
PROCEDURE: XR KNEE RT 3V INDICATIONS: pain TECHNIQUE: 3 views of the knee were acquired. COMPARISON: None. FINDINGS: Bones: No fractures or dislocations. No suspicious bony lesions. Moderate tricompartmental arthritic change most severe in the medial and patellofemoral compartments. Periarticular osteophytes. No erosions. Soft tissues: Mild joint effusion. No suspicious soft tissue calcifications. IMPRESSION: Overall moderate tricompartmental arthritic changes above. Dictated by: Angélica Larsen M.D. on 12/16/2024 at 21:36 Approved by: Angélica Larsen M.D. on 12/16/2024 at 21:37
== END ==
LOC: RAD 17:17
PROVIDERS: PCP Family Medicine; Referring Provider Family Medicine; Visit Provider Family Medicine
DX: M25.461 Effusion, right knee (principal); M25.569 Pain in unspecified knee; M25.559 Pain in unspecified hip; M47.816 Spondylosis without myelopathy or radiculopathy, lumbar region; Z02.89 Encounter for other administrative examinations; Z96.643 Presence of artificial hip joint, bilateral
CPT/HCPCS: 73502; 73562; 80305

== ENCOUNTER → 2025-09-15 16:16 | Outpatient (CLI) | payer OTHER, SELFPAY ==
[2023-10-08 16:45] VITALS: BMI 31.4
[2025-09-15 16:59] LABS: Hematocrit 39.8 % (36-46); Hemoglobin 13.3 g/dL (12.0-16.0); Mean Corpuscular HGB Conc 33.5 % (30-36); Mean Corpuscular Hemoglobin 32.1 PG (26-34); Mean Corpuscular Volume 95.8 fL (80-100); Platelet Count 333 X10^3/uL (150-400)
[2025-09-15 17:21] LABS: Alanine Aminotransferase 20 IU/L (<35); Albumin 4.2 g/dL (3.5-5.0); Albumin Globulin Ratio 1.6 (1.0-2.8); Alkaline Phosphatase 78 U/L (38-126); Blood Urea Nitrogen 9 mg/dL (7-17); Calcium 8.7 mg/dL (8.4-10.2); Carbon Dioxide 22 mmol/L (22-32); Chloride 104 mmol/L (98-107); Cholesterol 137 mg/dL (140-199); Estimated Glomerular Filt Rate > 60 mL/min (>60); Globulin 2.7 g/dL (1.7-4.1); Glucose 92 mg/dL (70-99); HDL Cholesterol 53 mg/dL (40-60); HEMOLYSIS < 15 (0-50); Potassium 4.0 mmol/L (3.4-5.1); Sodium 135 mmol/L (137-145); Total Protein 6.9 g/dL (6.3-8.2); Triglycerides 113 mg/dL (35-150)
[2025-09-15 17:36] LABS: Vitamin D 25 Hydroxy (D3) 50.2 ng/mL (30.0-100.0)
== END ==
PROVIDERS: PCP Family Medicine; Referring Provider Family Medicine; Visit Provider Family Medicine
DX: G43.919 Migraine, unspecified, intractable, without status migrainosus (principal); E78.5 Hyperlipidemia, unspecified; I50.9 Heart failure, unspecified; J44.9 Chronic obstructive pulmonary disease, unspecified; I10 Essential (primary) hypertension; M79.671 Pain in right foot; M79.672 Pain in left foot; R53.83 Other fatigue; F51.05 Insomnia due to other mental disorder; F99 Mental disorder, not otherwise specified
CPT/HCPCS: 36415; 80053; 80061; 82306; 85027